=== PATIENT | male | born 1985 | race Two or more races ===

== ENCOUNTER 2019-05-29 21:35 | Emergency (ER) | payer OTHER ==
[~2019-05-29] VITALS: Ht 170.2 cm; Wt 86.2 kg
[2019-05-29 21:57] LABS: Urine Bacteria NONE SEEN /hpf (None Seen); Urine Blood 2+ /uL (Negative); Urine Mucus FEW (None Seen); Urine Specific Gravity 1.023 (1.001-1.035); Urine WBC 1 /hpf (0 - 3)
[2019-05-29 23:22] LABS: Basophils # (auto) 0 uL; Basophils % (auto) 0.4 % (0.0-2.0); Eosinophils # (auto) 0.1 uL; Eosinophils % (auto) 1.1 % (0.0-7.0); Hematocrit 46.5 % (41.0-53.0); Hemoglobin 15.8 g/dL (13.5-17.5); Lymphocytes # (auto) 1.5 uL; Mean Corpuscular Hemoglobin 28.5 pg (28.0-32.0); Mean Corpuscular Hgb Conc. 33.9 g/dL (32.0-36.0); Mean Corpuscular Volume 84.1 fL (80.0-100.0); Monocytes # (auto) 0.8 uL; Monocytes % (auto) 6.7 % (0.0-12.0); Neutrophils # (auto) 9.3 uL; Neutrophils % (auto) 78.8 % (37.0-80.0); Nucleated Red Blood Cells % 0.8 %; Platelet Count (auto) 214 10^3/uL (140-450); Red Blood Cells 5.53 10^6/uL (4.5-5.90); Red Cell Distribution Width 12.6 % (11.8-14.3); White Blood Cell 11.8 10^3/uL (4.4-10.8)
[2019-05-29 23:32] LABS: Calcium 8.9 mg/dL (8.5-10.1); Potassium 3.8 mmol/L (3.5-5.1)
[2019-05-29 23:35] LABS: BUN/Creatinine Ratio 13.1
[2019-05-29 23:37] LABS: Bilirubin, Total 0.4 mg/dL (0.2-1.0); Total Protein 7.7 g/dL (6.4-8.2)
[2019-05-30 00:25] VITALS: BP 123/92
[2019-05-30] MEDS ORDERED: LEVOFLOXACIN 750MG 150 ML IV ONE (01:15)
[2019-05-30] MEDS ORDERED: ONDANSETRON HCL 4 MG/2 ML VIAL IV ONE (01:15)
[2019-05-30] MEDS ORDERED: HYDROmorphone HCL 2 MG/ML VL IV ONE (01:15)
[2019-05-30] MEDS ORDERED: metroNIDAZOLE 500MG/100ML 100 ML IV ONE (01:15)
[2019-05-30] MEDS ORDERED: SODIUM CHLORIDE 0.9% 2,000 ML IV ONE (02:15)
== END 2019-05-30 03:18 ==
LOC: ER 21:38
DX: N20.1 Calculus of ureter (principal)
CPT/HCPCS: 36415; 74176; 80053; 81001; 82150; 83690; 85025; 96365; 96366; 99284; J1170; J1956; J2405